=== PATIENT | female | born 1965 | race Caucasian/White ===

== ENCOUNTER → 2021-01-15 | Outpatient (CLI) | payer MEDICARE ==
[~2021-01-15] VITALS: Ht 162.6 cm; Wt 92.1 kg
[~2021-01-15] MED LIST: ADENOSINE 77 MG in GIVE UN-DILUTED 0 ML IV ONE; ADENOSINE 90 MG/30 ML INJ IV ONE
== END | disposition home or self-care (01) ==
LOC: Rad HDHVI 09:05
PROVIDERS: ATTEND Internal Medicine Cardiovascular Disease
DX: I11.0 Hypertensive heart disease with heart failure (principal); I50.43 Acute on chronic combined systolic (congestive) and diastolic (congestive) heart failure; E78.5 Hyperlipidemia, unspecified; R06.02 Shortness of breath; R07.9 Chest pain, unspecified; Z82.49 Family history of ischemic heart disease and other diseases of the circulatory system
CPT/HCPCS: 78452; 93005; 96374; 96375; A9500; J0153

== ENCOUNTER 2021-03-06 07:39 | Day surgery (SDC) | payer MEDICARE, MEDICAID ==
[2021-03-06] VITALS (7 sets, daily range): BP systolic 132–153; BP diastolic 83–100
[~2021-03-06] VITALS: Ht 162.6 cm; Wt 91.2 kg
[~2021-03-06 07:39] MED LIST changes: -ADENOSINE 77 MG in GIVE UN-DILUTED 0 ML IV ONE; -ADENOSINE 90 MG/30 ML INJ IV ONE; +ASPI-543 PO; +CITA-77 PO; +CLON0.2D6 TD; +GABA-339 PO; +HYDR50TA15 PO; +LEVE100012 PO; +METO-159 PO; +PRAV20TA3 PO; +SACU1TAB4 PO; +SUCR1TAB PO; +TOPI100T68 PO; +ZOLP10TA6 PO
[2021-03-06] MEDS ORDERED: LIDOCAINE 2%HCL (LOCAL ANESTH.) INJ 20ML MDV ONE ×2 (08:56→09:16)
[2021-03-06] MEDS ORDERED: SODIUM CHL 0.9% 0 ML ONE (09:07)
[2021-03-06] MEDS ORDERED: IOHEXOL 350 MG/ML 100ML IJ ONE (09:07)
[2021-03-06] MEDS ORDERED: ANGIOMAX 250 MG VIAL IV ONE (09:07)
[2021-03-06] MEDS ORDERED: MIDAZOLAM HCL 2MG/2ML 2ml VIAL (1mg/ml) ONE (09:07)
[2021-03-06] MEDS ORDERED: fentaNYL CITRATE 100 MCG/2 ML VL ONE (09:07)
== END 2021-03-06 12:15 | disposition home or self-care (01) ==
LOC: CATH 07:39
PROVIDERS: ATTEND Internal Medicine Cardiovascular Disease
DX: I25.10 Atherosclerotic heart disease of native coronary artery without angina pectoris (principal); E78.5 Hyperlipidemia, unspecified; G40.909 Epilepsy, unspecified, not intractable, without status epilepticus; I11.0 Hypertensive heart disease with heart failure; Z20.822 Contact with and (suspected) exposure to COVID-19; Z79.82 Long term (current) use of aspirin; Z79.899 Other long term (current) drug therapy
CPT/HCPCS: 36252; 93460; C1751; C1760; C1894; J1644; J2250; J3010; J7030; Q9967; U0003; 99152

== ENCOUNTER 2021-12-11 23:59 | Inpatient (IN) | payer MEDICARE, MEDICAID ==
[~2021-12-11] VITALS: Ht 162.6 cm; Wt 105.7 kg
[2021-12-12] MEDS ORDERED: VANCOMYCIN 1GM/250ML 250 ML IV ONE (03:00)
[2021-12-12 03:22] LABS: Basophils # (auto) 0.1 10 ^3/uL (0-0.2); Basophils % (auto) 0.8 % (0.0-2.0); Eosinophils # (auto) 0.2 10 ^3/uL (0-0.8); Eosinophils % (auto) 1.9 % (0.0-7.0); Hematocrit 37.6 % (36.0-46.0); Hemoglobin 12.2 g/dL (12.2-16.2); Lymphocytes # (auto) 2.5 10 ^3/uL (0.4-5.4); Lymphocytes % (auto) 31.6 % (10.0-50.0); Mean Corpuscular Hemoglobin 31.4 pg (28.0-32.0); Mean Corpuscular Hgb Conc. 32.5 g/dL (32.0-36.0); Mean Corpuscular Volume 96.6 fL (80.0-100.0); Monocytes # (auto) 0.5 10 ^3/uL (0-1.3); Monocytes % (auto) 6.6 % (0.0-12.0); Neutrophils # (auto) 4.7 10 ^3/uL (1.6-8.6); Neutrophils % (auto) 59.1 % (37.0-80.0); Nucleated Red Blood Cells % 0.1 %; Red Blood Cells 3.89 10^6/uL (4.0-5.20); Red Cell Distribution Width 14.3 % (11.8-14.3)
[2021-12-12] MEDS ORDERED: MORPHINE SULFATE INJ 2 MG/ml SYRG IV PRN ×2 (03:30→03:45)
[2021-12-12] MEDS ORDERED: HYDROcodone-ACET 5/325MG TAB PO PRN (03:30)
[2021-12-12] MEDS ORDERED: TEMAZEPAM 15 MG CAP PO PRN (03:30)
[2021-12-12] MEDS ORDERED: ONDANSETRON HCL 4 MG/2 ML VIAL IV PRN (03:30)
[2021-12-12] MEDS ORDERED: ACETAMINOPHEN 325 MG TAB PO PRN (03:30)
[2021-12-12] MEDS ORDERED: VANCOMYCIN PER PHARMACY 0 MG IV SCH (03:30)
[2021-12-12] MEDS ORDERED: DOCUSATE SOD 100 MG CAP PO PRN (03:30)
[2021-12-12 03:40] LABS: Albumin 3.6 g/dL (3.4-5.0); BUN/Creatinine Ratio 8.3; Calcium 8.6 mg/dL (8.5-10.1); Potassium 3.4 mmol/L (3.5-5.1)
[2021-12-12 03:43] LABS: Bilirubin, Total 0.2 mg/dL (0.2-1.0); Total Protein 7.6 g/dL (6.4-8.2)
[2021-12-12] MEDS ORDERED: NITROGLYCERIN 0.4 MG SL TAB SL PRN (03:45)
[2021-12-12] MEDS: SODIUM CHLORIDE 0.9% 1,000 ML IV SCH ×2 (05:00→20:10)
[2021-12-12] MEDS ORDERED: POTASSIUM CHL 20 Meq TABLET PO ONE (09:45)
[2021-12-12] MEDS: FAMOTIDINE (10MG/ML) 2ML VL IV SCH ×2 (10:00→23:14)
[2021-12-12] MEDS: MULTIPLE VITAMIN TAB PO SCH (10:00)
[2021-12-12] MEDS ORDERED: ZINC SULFATE 220mg CAP or TAB PO SCH (10:00)
[2021-12-12] MEDS ORDERED: ASCORBIC ACID 500 MG TAB PO SCH (10:00)
[2021-12-12] MEDS: ASPirin 81 mg TAB PO SCH (10:00)
[2021-12-12] MEDS: ENOXAPARIN SOD 40 MG/0.4 ML SYRINGE SC SCH (10:00)
[2021-12-12] MEDS: AMPICILLIN & SULBACTAM SODIUM 3 GM in SODIUM CHL 0.9% 100 ML IV SCH ×2 (15:14→20:01)
[2021-12-12] MEDS ORDERED: PANT40T PO (15:15)
[2021-12-12] MEDS ORDERED: DIVA250T4 PO (15:16)
[2021-12-12] MEDS ORDERED: GABA800T97 PO (16:59)
[2021-12-12] MEDS ORDERED: CLON0.1T PO (16:59)
[2021-12-12] MEDS ORDERED: TOPI200T43 PO (16:59)
[2021-12-12] MEDS ORDERED: CHOL20007 PO (16:59)
[2021-12-12] MEDS ORDERED: DIVA1TAB58 PO (16:59)
[2021-12-12] MEDS ORDERED: ALPR0.5T7 PO (16:59)
[2021-12-12] MEDS ORDERED: BACL10TA PO (16:59)
[2021-12-12] MEDS: hydrALAZINE HCL 20 MG/ML VL IV PRN (17:01)
[2021-12-12 17:06] VITALS: BP 153/80
[2021-12-12] MEDS: VANCOMYCIN 1GM/250ML 250 ML IV SCH (21:36)
[2021-12-12 22:00] VITALS: BP 103/64
[2021-12-13] MEDS: AMPICILLIN & SULBACTAM SODIUM 3 GM in SODIUM CHL 0.9% 100 ML IV SCH ×4 (02:32→20:55)
[2021-12-13 05:00] VITALS: BP 115/49
[2021-12-13 05:42] LABS: Basophils # (auto) 0 10 ^3/uL (0-0.2); Basophils % (auto) 0.4 % (0.0-2.0); Eosinophils # (auto) 0.1 10 ^3/uL (0-0.8); Eosinophils % (auto) 0.9 % (0.0-7.0); Hematocrit 39.8 % (36.0-46.0); Hemoglobin 12.8 g/dL (12.2-16.2); Lymphocytes # (auto) 1.7 10 ^3/uL (0.4-5.4); Lymphocytes % (auto) 19.1 % (10.0-50.0); Mean Corpuscular Hgb Conc. 32.1 g/dL (32.0-36.0); Mean Corpuscular Volume 96.5 fL (80.0-100.0); Monocytes # (auto) 0.6 10 ^3/uL (0-1.3); Monocytes % (auto) 7.2 % (0.0-12.0); Neutrophils # (auto) 6.5 10 ^3/uL (1.6-8.6); Neutrophils % (auto) 72.4 % (37.0-80.0); Nucleated Red Blood Cells % 0.2 %; Red Blood Cells 4.12 10^6/uL (4.0-5.20); Red Cell Distribution Width 14.6 % (11.8-14.3)
[2021-12-13 05:57] LABS: Calcium 8.3 mg/dL (8.5-10.1); Potassium 3.4 mmol/L (3.5-5.1)
[2021-12-13 06:01] LABS: Albumin 3.2 g/dL (3.4-5.0); BUN/Creatinine Ratio 8.6
[2021-12-13 06:03] LABS: Bilirubin, Total 0.3 mg/dL (0.2-1.0); Total Protein 7.1 g/dL (6.4-8.2)
[2021-12-13 09:00] VITALS: BP 126/82
[2021-12-13] MEDS: FAMOTIDINE (10MG/ML) 2ML VL IV SCH ×2 (10:47→23:07)
[2021-12-13] MEDS: ENOXAPARIN SOD 40 MG/0.4 ML SYRINGE SC SCH (10:59)
[2021-12-13] MEDS: MULTIPLE VITAMIN TAB PO SCH (10:59)
[2021-12-13] MEDS: ASPirin 81 mg TAB PO SCH (11:00)
[2021-12-13] MEDS ORDERED: ERGOCALCIFEROL 50,000 UNIT(1.25MG) CAP PO SCH (11:30)
[2021-12-13] MEDS ORDERED: POTASSIUM CHL 20 Meq TABLET PO ONE (11:45)
[2021-12-13 13:00] VITALS: BP 133/66
[2021-12-13 16:36] VITALS: BP 132/74
[2021-12-13] MEDS: VANCOMYCIN 1GM/250ML 250 ML IV SCH (17:01)
[2021-12-13 22:00] VITALS: BP 156/89
[2021-12-14] MEDS: AMPICILLIN & SULBACTAM SODIUM 3 GM in SODIUM CHL 0.9% 100 ML IV SCH ×3 (02:38→14:32)
[2021-12-14 05:00] VITALS: BP 143/80
[2021-12-14 09:00] VITALS: BP 140/82
[2021-12-14] MEDS: VANCOMYCIN 1GM/250ML 250 ML IV SCH (10:11)
[2021-12-14] MEDS: FAMOTIDINE (10MG/ML) 2ML VL IV SCH (10:50)
[2021-12-14] MEDS: ENOXAPARIN SOD 40 MG/0.4 ML SYRINGE SC SCH (10:51)
[2021-12-14] MEDS: MULTIPLE VITAMIN TAB PO SCH (10:51)
[2021-12-14] MEDS: ASPirin 81 mg TAB PO SCH (10:51)
[2021-12-14] MEDS: hydrALAZINE HCL 20 MG/ML VL IV PRN (12:52)
[2021-12-14] MEDS ORDERED: CLIN-203 PO (12:53)
[2021-12-14] MEDS ORDERED: ERGO1CAP23 PO (12:53)
[2021-12-14] MEDS ORDERED: LACT1TAB15 PO (12:53)
[2021-12-14 13:00] VITALS: BP 150/80
[2021-12-14 17:00] VITALS: BP 149/87
[2021-12-14 17:10] VITALS: BP 149/87
== END 2021-12-14 17:55 | disposition home or self-care (01) | DRG 602 ==
LOC: ER 23:59 → OVERFLOW 12-12 03:35 → CENTRAL 12-12 15:02
PROVIDERS: ADMIT Nurse Practitioner Family; ATTEND Internal Medicine
DX: L03.116 Cellulitis of left lower limb (principal); N17.0 Acute kidney failure with tubular necrosis; Z68.41 Body mass index [BMI] 40.0-44.9, adult; I10 Essential (primary) hypertension; G40.909 Epilepsy, unspecified, not intractable, without status epilepticus; E78.5 Hyperlipidemia, unspecified; E66.01 Morbid (severe) obesity due to excess calories; Z20.822 Contact with and (suspected) exposure to COVID-19; E87.6 Hypokalemia; E55.9 Vitamin D deficiency, unspecified; I25.10 Atherosclerotic heart disease of native coronary artery without angina pectoris; Z86.73 Personal history of transient ischemic attack (TIA), and cerebral infarction without residual deficits; Z90.710 Acquired absence of both cervix and uterus; Z98.51 Tubal ligation status; Z71.3 Dietary counseling and surveillance
CPT/HCPCS: 36415; 80053; 80202; 82306; 82542; 82565; 83036; 83605; 84443; 85025; 85379; 85652; 93971; 96365; 96372; G0378; J3490; J7060